=== PATIENT | male | born 1955 | race Caucasian/White ===

== ENCOUNTER 2019-01-25 09:26 | Emergency (ER) | payer MEDICARE, OTHER ==
[~2019-01-25] VITALS: Ht 175.3 cm; Wt 104.3 kg
[~2019-01-25 09:26] MED LIST: DOCU-94 PO; FINA5TAB4 PO; LIS10T PO; RANI300C7 PO; TAMS0.4C36 PO; [UNRECOGNIZED DRUG - CODE] PO
[2019-01-25 09:40] VITALS: BP 155/74
[2019-01-25] MEDS ORDERED: SODIUM CHLORIDE 0.9% 1,000 ML IV ONE (10:14)
== END 2019-01-25 10:26 | disposition left against medical advice (07) ==
LOC: ER 09:26 → EDUNIT# 09:26 → EDBD 09:26 → EDSEX 09:26 → ER 10:26
DX: R53.1 Weakness (principal); M54.9 Dorsalgia, unspecified; Z53.21 Procedure and treatment not carried out due to patient leaving prior to being seen by health care provider
CPT/HCPCS: 93005

== ENCOUNTER 2019-10-15 21:50 | Emergency (ER) | payer OTHER ==
[~2019-10-15] VITALS: Ht 182.9 cm; Wt 85.3 kg
[2019-10-15 23:00] VITALS: BP 116/63
== END 2019-10-15 23:56 | disposition home or self-care (01) ==
LOC: ER 21:52
DX: T83.098A Other mechanical complication of other urinary catheter, initial encounter (principal); R33.9 Retention of urine, unspecified; J44.9 Chronic obstructive pulmonary disease, unspecified; F17.210 Nicotine dependence, cigarettes, uncomplicated; Z88.5 Allergy status to narcotic agent; Z79.899 Other long term (current) drug therapy
CPT/HCPCS: 51702